=== PATIENT | male | born 1950 | race Caucasian/White ===

== ENCOUNTER → 2016-12-18 | Outpatient (CLI) | payer BC ==
[~2016-12-18] MED LIST: ACET-1256 PO; ASPCH81 PO; DIPH-437 PO; FRRG PO; LPT10 PO; PRT40 PO; WARF1TAB PO
[2016-12-18 10:52] LABS: BASO % 0.5 %; BASO ABS # 0.03 K/uL (0-0.2); COMPLETE YES; EOS % 5.9 %; HEMATOCRIT 43.7 % (42-52); IG% 0.3 %; LYMPH % 30.5 %; LYMPH ABS # 2.02 K/uL (1.2-3.4); MEAN CELL VOLUME 92.2 fL (80-100); MEAN CORPUSCULAR HEMOGLOBIN 31.2 pg (25-34); MEAN CORPUSCULAR HGB CONC 33.9 g/dl (32-36); MEAN PLATELET VOLUME 8.6 fL (7.4-10.4); MONO % 7.4 %; NEUT % 55.4 %; PLATELET COUNT 239 K/uL (130-400); RED BLOOD COUNT 4.74 M/uL (4.7-6.1); WHITE BLOOD COUNT 6.63 K/uL (4.8-10.8)
[2016-12-18 11:19] LABS: BLOOD UREA NITROGEN 15 mg/dl (7-18); BUN/CREATININE RATIO 12.7 (10-20); CALCIUM 8.7 mg/dl (8.5-10.1); CARBON DIOXIDE 30 mmol/L (21-32); CHLORIDE 105 mmol/L (98-107); GLUCOSE 115 mg/dl (70-99); SODIUM 139 mmol/L (136-145)
[2016-12-18 11:28] LABS: ALB/GLOB RATIO 0.9 (0.9-2); ALKALINE PHOSPHATASE 72 U/L (45-117); ALT/SGPT 31 U/L (12-78); AST/SGOT 13 U/L (15-37); CHOLESTEROL 212 mg/dl (0-200); CHOLESTEROL/HDL RATIO 5.4; HDL CHOLESTEROL 39 mg/dl; LDL CHOLESTEROL CALCULATED 148 mg/dl; PHOSPHORUS 2.1 mg/dl (2.5-4.9); PROSTATE SPECIFIC ANTIGEN 0.444 ng/ml (0.000-4.000); TRIGLYCERIDES 126 mg/dl (0-150); URIC ACID 5.2 mg/dl (2.6-7.2); VERY LOW DENSITY LIPOPROT CALC 25 mg/dl
[2016-12-18 11:32] LABS: ESTIMATED AVERAGE GLUCOSE 128 mg/dl; HA1C FLAG Normal (Normal)
[2016-12-22 11:40] LABS: C-REACTIVE PROT HIGHSEN 7.3 MG/L
--- NOTE | 2017-01-02 13:29 | CODING QUERY MEDICAL NECESSITY ---
SUPPORTING DIAGNOSIS NEEDED A supporting diagnosis is required for the test/procedure performed on this patient in order for us to be reimbursed by the patient's insurance. Please provide a supporting diagnosis for the following test/procedure listed below next to the test name along with your signature. *If there is no additional diagnosis for this patient that would support the following test/procedure please document that below next to the test/procedure. Test(s)/Procedure(s) that require a supporting diagnosis: * PSA DIAGNOSIS: * C-REACTIVE PROTEIN DIAGNOSIS: * DOS: 12/18/16 Provider Signature: Date: Thank you [facility] Once completed, please kindly fax back to [phone] For questions please call [phone]
== END | disposition home or self-care (01) ==
LOC: C.LABBC 08:52
PROVIDERS: ATTEND Family Medicine
DX: R73.09 Other abnormal glucose (principal); E55.9 Vitamin D deficiency, unspecified; D51.9 Vitamin B12 deficiency anemia, unspecified

== ENCOUNTER → 2017-12-31 | Outpatient (CLI) | payer BC ==
[~2017-12-31] MED LIST changes: +PERFLUTREN LIPID MICROSPHERE (DEFINITY) IV ONE
--- NOTE | 2017-12-31 19:50 | ECHOCARDIOGRAM REPORT ---
*NOTICE TO RECEIVING REPUBLICAN AGENCY This information is strictly Confidential and protected under [place] law. [place] law prohibits you from making any further disclosure of this information unless further disclosure is expressly permitted by the written consent of the person to whom it pertains or is authorized by law. A general authorization for the release of medical or other information is not sufficient for this purpose. Hospital accepts no responsibility if the information is made available to any other person, INCLUDING THE PATIENT. Interpretation Summary * Name: CHERYL VELASQUEZ JR Study Date: 12/31/2017 01:31 PM BP: 140/70 mmHg * Patient Location: [facility] HR: 82 * : 1950 (M/d/yyyy) Gender: Male Height: 72 in * Age: 67 yrs Ethnicity: [place] Weight: 240 lb * Ordering Physician: Raghavendra Conner * Referring Physician: Raghavendra Conner * Performed By: Roslyn Dooley RDCS * * Reason For Study: AORTIC STENOSIS * BSA: 2.3 m2 * -- Conclusions -- * 1. Normal left ventricular size and systolic function. EF 60-65%. No regional wall motion abnormalities. Mild concentric left ventricular hypertrophy. Type 1 diastolic dysfunction. * 2. Mild valvular aortic stenosis. * 3. Technically difficult study, enhanced with IV Definity. * 4. Similar findings compared to prior study on 01/02/2014. Procedure Details * A contrast injection of Definity was performed to improve assessment of LV function. * Contrast was injected into an intravenous site in the left arm. * One vial of Definity ultrasound contrast was diluted in normal saline to a total volume of 10 ml. A total of '2' ml of solution was administered during imaging. * Lot # [id number] of Definity utilized for procedure. * Expiration date JAN 14. * The attending nurse who injected the contrast agent was CURT VELÁZQUEZ RN. Left Ventricle * Normal left ventricular size and systolic function. EF 60-65%. No regional wall motion abnormalities. Mild concentric left ventricular hypertrophy. Type 1 diastolic dysfunction. Right Ventricle * The right ventricle is normal in size and function. * The right ventricular systolic function is normal as assessed by tricuspid annular plane systolic excursion (TAPSE) (normal >1.5 cm). Atria * The left atrial size is normal. * Right atrial size is normal. * There is no evidence of atrial septal defect, but resolution does not allow assessment for a patent foramen ovale. Mitral Valve * The mitral valve is grossly normal. * There is no mitral valve stenosis. * Significant mitral regurgitation is absent. Tricuspid Valve * The tricuspid valve is not well visualized. * There is no tricuspid stenosis. * Significant tricuspid regurgitation is absent. Aortic Valve * Possibly trileaflet aortic valve. * Mild valvular aortic stenosis. * There is no significant aortic regurgitation. Pulmonic Valve * The pulmonary valve is inadequately visualized, but the Doppler data is adequate for interpretation. * There is no pulmonic valvular stenosis. * There is no significant pulmonary regurgitation. Great Vessels * The aortic root is normal size. * Ascending aorta of normal dimension Pericardium/Pleural * There is no pericardial effusion. Great Vessels * IVC not visualized. MMode 2D Measurements and Calculations IVSd 1.3 cm LVIDd 4.4 cm LVIDs 2.9 cm LVPWd 1.3 cm IVS/LVPW 1.0 FS 35.6 % EDV(Teich) 89.5 ml ESV(Teich) 31.1 ml EF(Teich) 65.3 % EDV(cubed) 87.4 ml ESV(cubed) 23.3 ml EF(cubed) 73.3 % LV mass(C)d 212.4 grams LV mass(C)dI 92.3 grams/m\S\2 SV(Teich) 58.4 ml SI(Teich) 25.4 ml/m\S\2 SV(cubed) 64.0 ml SI(cubed) 27.8 ml/m\S\2 Ao root diam 3.0 cm Ao root area 7.2 cm\S\2 asc Aorta Diam 2.8 cm LVOT diam 2.0 cm LVOT area 3.2 cm\S\2 LVAd ap4 29.3 cm\S\2 LVLd ap4 8.1 cm EDV(MOD-sp4) 86.3 ml EDV(sp4-el) 89.9 ml LVAs ap4 15.6 cm\S\2 LVLs ap4 6.5 cm ESV(MOD-sp4) 31.3 ml ESV(sp4-el) 32.1 ml EF(MOD-sp4) 63.8 % EF(sp4-el) 64.3 % LVAd ap2 29.4 cm\S\2 LVLd ap2 8.3 cm EDV(MOD-sp2) 86.5 ml EDV(sp2-el) 88.3 ml LVAs ap2 15.1 cm\S\2 LVLs ap2 6.6 cm ESV(MOD-sp2) 28.5 ml ESV(sp2-el) 29.3 ml EF(MOD-sp2) 67.1 % EF(sp2-el) 66.8 % LVLd %diff 11.2 % EDV(MOD-bp) 101.0 ml LVLs %diff 6.0 % ESV(MOD-bp) 29.2 ml EF(MOD-bp) 71.1 % SV(MOD-sp4) 55.0 ml SI(MOD-sp4) 23.9 ml/m\S\2 SV(MOD-sp2) 58.1 ml SI(MOD-sp2) 25.2 ml/m\S\2 SV(MOD-bp) 71.8 ml SI(MOD-bp) 31.2 ml/m\S\2 SV(sp4-el) 57.8 ml SI(sp4-el) 25.1 ml/m\S\2 SV(sp2-el) 59.0 ml SI(sp2-el) 25.6 ml/m\S\2 Doppler Measurements and Calculations MV E max mary ellen 61.9 cm/sec MV A max mary ellen 66.8 cm/sec MV E/A 0.93 MV dec time 0.22 sec Ao V2 max 251.7 cm/sec Ao max PG 25.3 mmHg Ao max PG (full) 21.3 mmHg Ao V2 mean 173.9 cm/sec Ao mean PG 13.6 mmHg Ao mean PG (full) 11.5 mmHg Ao V2 VTI 47.7 cm ELLE(I,A) 1.3 cm\S\2 ELLE(I,D) 1.3 cm\S\2 ELLE(V,A) 1.3 cm\S\2 ELLE(V,D) 1.3 cm\S\2 LV V1 max PG 4.1 mmHg LV V1 mean PG 2.0 mmHg LV V1 max 101.1 cm/sec LV V1 mean 65.3 cm/sec LV V1 VTI 19.9 cm SV(Ao) 342.8 ml SI(Ao) 148.9 ml/m\S\2 SV(LVOT) 62.9 ml SI(LVOT) 27.3 ml/m\S\2
== END | disposition home or self-care (01) ==
LOC: C.CPL 13:23
PROVIDERS: ATTEND Family Medicine
DX: I35.0 Nonrheumatic aortic (valve) stenosis (principal)

== ENCOUNTER 2020-06-12 06:21 | Observation (INO) ==
--- NOTE | 2020-04-18 12:52 | Anesthesiology Consultation ---
Date of Service April 18, 2020 Assessment & Plan (1) Encounter for pre-operative examination: COVID Status: As of 04/18 assessment, patient denies travel to endemic area, known exposure/sick contacts, or symptoms of COVID19. Patient instructed that they and their household members must follow strict social distancing guidelines, wear a mask in public and avoid travel for 14 days prior to surgery. Preoperative COVID19 testing to be completed prior to surgery per surgeon's arrangements. Patient made aware to self-isolate as much as possible between COVID testing and surgery. Chart Review Chart Review: Acceptable Risk for Surgery (pending response from PCP re: elevated glucose) and Patient seen in Pre Admission Testing Teaching & Discussion Instructed NPO after midnight before surgery, except medications with 15 cc of water. Medication instructions provided according to the PAT guidelines. History Surgery Operation Date: 06/12/20 07:00 Proposed Procedures p Right Total Hip Arthroplasty - Abhinav Jimenez MD Height/Weight Height: 6 ft Weight: 111.584 kg Allergies Allergy/AdvReac Type Severity Reaction Status Date / Time atorvastatin [From Lipitor] Allergy Mild Rash Verified 04/18/20 12:34 oxycodone Allergy Mild nausea and Verified 04/18/20 12:33 did not work Medications Home Medications Medication Instructions Recorded Confirmed Last Taken vddrqey-lpofhxwrniigy-gujludno 2 tab PO HS 04/18/20 04/18/20 Unknown [Excedrin Extra Strength] Past Medical History Medical History (Updated 04/18/20 @ 16:32 by Fabio Abbott) Aortic stenosis Mild per 2018 echo. Arthritis of right hip Carotid artery stenosis Discovered in 2013 after SADIE when pt had TIA symptoms post-op. Monitored yearly by Dr. Brown. To have updated carotid doppler 04/2020. Obesity Exercise / Class Metabolic Activity III < 4 Walking/Shop/Light housework (+Mild SOB with 1 FOS, denies any chest pain) Past Surgical History Surgical History History of left hip replacement Hx of left inguinal hernia repair Past Anesthesia History No Family Hx of Anesthesia Complications Acute single episode of PONV with SADIE 2013. History of PONV No Hx of Motion Sickness and History of PONV Social History Smoking Status: Never smoker Do You Dip or Chew Tobacco: No Hx Alcohol Use: Yes alcohol intake frequency: holidays/special occasions only Alcohol Intake Frequency Comment: rare Hx Substance Use: No substance use type: does not use Review of Systems Pt denies any recent chest pain, shortness of breath, palpitations, cough, fever, URI, or uncontrolled acid reflux. Physical Exam Vital Signs BP: 155/81 (pt reports this is a bit high for him, usually 140s systolic) P: 90bpm SPO2: 96% RA T: 98.1 F R: 16 ENMT Mouth: + restricted motion of mouth, + dental bridge (front upper incisors), + dental restorations (molar) and + small oral opening; no chipped teeth and no loose teeth Thyromental Distance: < 3.5 Finger Breadths (3) Mallampati Class: III Neck + thick neck; neck extension not limited and no facial hair Respiratory normal respiratory effort Auscultation: lungs clear to auscultation bilaterally Cardiovascular Rate/Rhythm: regular rate and regular rhythm Heart Sounds: + murmur (II/ Systolic @ RSB, I/ mitral area) Vessels: no carotid bruit Extremities: no edema Testing Laboratory Results 04/18/20 13:15 04/18/20 13:15 PT 10.4 Seconds (9.0-12.0) 04/18/20 13:15 INR 1.0 (0.9-1.1) 04/18/20 13:15 APTT 32.0 Seconds (21.0-31.0) H 04/18/20 13:15 Blood Type O Positive 04/18/20 13:15 Antibody Screen NEGATIVE 04/18/20 13:15 *surgeon's office made aware of elevated glucose. Note sent to PCP. Electrocardiogram Date: 04/18/20 Findings: + NSR @ (85bpm) Moderate voltage criteria for LVH, may be normal variant. Chest X-Ray Date: 04/18/20 FINDINGS: Cardiac silhouette is enlarged, increased in size from comparison. No pneu mothorax, pleural effusion, airspace consolidation or overt pulmonary edema. Mild right hemidiaphragm elevation. Degenerative changes of the shoulders and spine. IMPRESSION: Cardiomegaly without acute process. Echocardiogram Date: 12/31/17 EF: 60-65% Normal LV size and systolic function. No regional wall motion abnormalities. Mild concentric LVH. Type I diastolic dysfunction. Mild aortic valvular stenosis (ELLE 1.3cm^2). Technically difficult study enhanced with IV Definity. Similar findings compared to prior study on 01/02/2014.
--- NOTE | 2020-04-18 13:35 | XRay Report ---
XR chest Pre-admission PA/Lat HISTORY: 69 years-old Male pat preoperative exam. No acute chest complaints COMPARISON: Chest radiographs 12/02/2013 TECHNIQUE: PA and lateral views of the chest FINDINGS: Cardiac silhouette is enlarged, increased in size from comparison. No pneumothorax, pleural effusion, airspace consolidation or overt pulmonary edema. Mild right hemidiaphragm elevation. Degenerative ch anges of the shoulders and spine. IMPRESSION: Cardiomegaly without acute process. ACT 112: Negative or not required by law. The above report was generated using voice recognition software. It may contain grammatical, syntax o r spelling errors. Electronically signed by: Efe Arias M.D. 04/18/2020 1:34 PM
[2020-04-18 13:39] LABS: Basophils # (auto) 0.02 K/uL (0-0.2); Basophils % (auto) 0.2 %; Eosinophils # (auto) 0.18 K/uL (0-0.5); Eosinophils % (auto) 2.2 %; Hemoglobin 15.6 g/dL (14.0-18.0); Immature Granulocytes # (auto) 0.04 K/uL (0.00-0.02); Immature Granulocytes % (auto) 0.5 %; Lymphocytes # (auto) 2.06 K/uL (1.2-3.4); Lymphocytes % (auto) 25.3 %; Mean Corpuscular Hemoglobin 31.1 pg (25-34); Mean Corpuscular Hgb Conc 34.7 g/dL (32-36); Mean Corpuscular Volume 89.6 fL (80-100); Mean Platelet Volume 8.3 fL (7.4-10.4); Monocytes # (auto) 0.74 K/uL (0.11-0.59); Monocytes % (auto) 9.1 %; Neutrophils # (auto) 5.09 K/uL (1.4-6.5); Neutrophils % (auto) 62.7 %; Platelet Count 223 K/uL (130-400); RDW Coefficient of Variation 12.6 % (11.5-14.5); RDW Standard Deviation 40.8 fL (36.4-46.3); Red Blood Count 5.02 M/uL (4.7-6.1); White Blood Count 8.13 K/uL (4.8-10.8)
[2020-04-18 13:56] LABS: Partial Thromboplastin Ratio 1.1; Prothrombin Time 10.4 Seconds (9.0-12.0)
--- NOTE | 2020-04-18 14:07 | Electrocardiogram Report ---
Test Reason : Blood Pressure : / mmHG Vent. Rate : 085 BPM Atrial Rate : 085 BPM P-R Int : 178 ms QRS Dur : 090 ms QT Int : 368 ms P-R-T Axes : 043 -20 042 degrees QTc Int : 437 ms Normal sinus rhythm Moderate voltage criteria for LVH, may be normal variant Borderline ECG When compared with ECG of 30-DEC-2013 10:43, Vent. rate has increased BY 41 BPM Confirmed by Lisandro Hicks ([id number]) on 04/18/2020 2:07:39 PM Referred By: Abhinav Jimenez Confirmed By:Lisandro Hicks
[2020-04-18 14:56] LABS: BUN Creatinine Ratio 11.6 (10-20); Calcium 8.7 mg/dl (8.5-10.1); Est GFR (African American) 67.7; Est GFR (Non-African American) 58.4; Potassium 4.1 mmol/L (3.5-5.1)
[2020-04-18 14:57] LABS: C Reactive Protein 1.11 mg/dl (0-0.29)
--- NOTE | 2020-06-09 10:13 | Progress Notes ---
DATE: 06/12/2020 CHIEF COMPLAINT: Right hip pain and discomfort. HISTORY OF PRESENT ILLNESS: The patient is a 70-year-old gentleman who is well known to me from previous left hip replacement done a little over 6 years ago. He has done quite well from that side, but has developed increased pain and discomfort in his right hip. He was having some pain in his hip even 6 years ago. It has gradually gotten worse over time. He describes groin pain, buttock pain, thigh pain, radiates down to his knee. He limps all the time, but more as the day goes on. The more he walks, the more it hurts and limps. He has become more debilitating. He cannot put his shoes and socks on. He would like to have his right hip fixed. PAST MEDICAL HISTORY: 1. Unspecified heart murmur. 2. Obesity with a BMI of 34. PAST SURGICAL HISTORY: Include: 1. Left hip replacement done 01/09/2014. 2. Herniorrhaphy. ALLERGIES: None. CURRENT MEDICATIONS: 1. Tylenol. 2. Baby aspirin. 3. Atorvastatin. 4. Iron. 5. Pantoprazole. SOCIAL HISTORY: A 70-year-old male. He is from [place]. He is . Does not smoke or drink. FAMILY HISTORY: Noncontributory. REVIEW OF HISTORY: Negative for diabetes, neurologic problem, vascular problems or bleeding disorders. No chest pain or shortness of breath. No history of DVT or PE. PHYSICAL EXAMINATION: GENERAL: Shows a pleasant, middle-aged male. He looks to be in good health. HEENT: Benign. NECK: Supple, no lymphadenopathy. LUNGS: Clear to auscultation. HEART: Has a regular rate and rhythm. ABDOMEN: Soft, nontender, nondistended. EXTREMITIES: Grossly neurovascularly intact except as follows. Examination of the right leg reveals the patient walks with a significant antalgic gait. Leg lengths clinically appear pretty equal. He has a very stiff hip with motion. Internal rotation to -5. External rotation to 20 degrees. Negative straight leg raise. No knee effusion. X-RAYS: X-rays of the right hip were reviewed. Shows advanced right hip DJD. He has got complete loss of his joint space with a large medial osteophyte. Left hip replacement looks to be in good position without signs of problems. ASSESSMENT: A 70-year-old male 6+ years out from a left hip replacement with advanced right hip degenerative joint disease. He has failed conservative care. He would like to have his right hip replaced. PLAN: We will take him to the operating room and do right total hip replacement. The risks and benefits of this procedure were explained to the patient including but not limited to DVT, PE, , infection, neurological injury, vascular injury, bleeding problem, pain, limited range of motion, stiffness, failure to relieve symptoms, incomplete relief of symptoms, need for further surgery in future, fracture, leg length inequality, nerve palsy, etc. The patient understands and desires to proceed. Informed consent was obtained. As far as discharge plans, he is planning to be discharged to home using home with home health. He states that he does not really respond to oxycodone would like either some different type of pain medicine. We will use note, on his preoperative visit, his blood sugars were elevated and he has gotten with his medical doctor and they have gotten this under control, but now being treated for diabetes.
[2020-06-10 08:51] LABS: SARS CoV2 RNA (COVID-19) NOT DETECTED (NOT DETECTED)
[~2020-06-12 06:21] MED LIST changes: -ACET-1256 PO; +ACETAMINOPHEN 500 MG TAB PO SCH; -ASPCH81 PO; +CEFAZOLIN 2000MG 2,000 MG/15 ML SYR IV SCH; -DIPH-437 PO; +FAMOTIDINE 20 MG TAB PO SCH; -FRRG PO; +GABAPENTIN 300 MG CAP PO SCH; +GENERAL ORDER PROBLEM SCH; -LPT10 PO; +LR 500ML BOLUS, THEN 15ML/HR IV SCH; +LR 60ML/HR IV SCH; +METOCLOPRAMIDE HCL 10 MG TABLET PO SCH; -PERFLUTREN LIPID MICROSPHERE (DEFINITY) IV ONE; -PRT40 PO; +TRANEXAMIC ACID 1,000 MG **IV Pre-op IV SCH; -WARF1TAB PO; +dexAMETHasone 4 MG TAB PO SCH
[2020-06-12] MEDS ORDERED: fentaNYL citrate 100 MCG/2 ML VIAL ONE (06:33)
[2020-06-12] MEDS ORDERED: MIDAZOLAM HCL 1 MG/ML 2ML VIAL ONE (06:33)
--- NOTE | 2020-06-12 06:47 | History & Physical Bridge Note ---
Date of Service June 12, 2020 History & Physical Bridge Note I have examined the patient, reviewed the History & Physical and in the interval since the performance of the History & Physical I have noted the following changes of clinical significance: no changes noted
[2020-06-12] MEDS ORDERED: BUPIVACAINE 0.5 % 5 MG/1 ML PF 10ML VIAL ONE (07:15)
[2020-06-12] MEDS ORDERED: MoRPHine SULFATE PF 1 MG/ML 10 ML AMP/VIAL ONE (07:24)
[2020-06-12] MEDS ORDERED: ATROPINE SULFATE 0.1 MG/ML 10ML SYR IV PRN (08:15)
[2020-06-12] MEDS ORDERED: fentaNYL citrate 100 MCG/2 ML VIAL IV PRN (08:15)
[2020-06-12] MEDS ORDERED: ePHEDrine sulfate 50 MG/ML AMP IV PRN ×2 (08:15→08:17)
[2020-06-12] MEDS ORDERED: ONDANSETRON INJ 2 MG/ML 2 ML VIAL IV PRN ×2 (08:15→08:17)
[2020-06-12] MEDS ORDERED: HYDROmorphone INJ 0.5 MG/0.5 ML SYR IV PRN (08:17)
[2020-06-12] MEDS ORDERED: MoRPHine SULFATE PF 1 MG/ML 10 ML AMP/VIAL INT SPINAL ONE (08:17)
[2020-06-12] MEDS ORDERED: MEPERIDINE HCL 25 MG/ML CARP/VIAL IV PRN (08:17)
[2020-06-12] MEDS ORDERED: NALOXONE HCL 0.4 MG/1 ML VIAL/CARP IV PRN ×2 (08:17→11:06)
[2020-06-12] MEDS ORDERED: NALOXONE HCL 0.08 MG in SYRINGE 1.8 ML IV PRN (08:17)
[2020-06-12] MEDS ORDERED: DiphenhydrAMINE HCL 50 MG/ML VIAL IV PRN (08:17)
[2020-06-12] MEDS ORDERED: PROMETHAZINE HCL 6.25 MG in SODIUM CHLORIDE 0.9% 50 ML IV PRN (08:17)
[2020-06-12] MEDS ORDERED: LACTATED RINGER'S 500 ML IV PRN (08:17)
[2020-06-12] MEDS ORDERED: MoRPHine SULFATE 2 MG/ML CARP IV PRN (08:17)
[2020-06-12] MEDS ORDERED: NALOXONE HCL 1 MG in SODIUM CHLORIDE 0.9% 1000ML 1,000 ML IV PRN (08:17)
[2020-06-12] MEDS ORDERED: EPINEPHrine INJ 1 MG/ML AMP ONE (08:23)
[2020-06-12] MEDS ORDERED: BUPIVACAINE 0.5 % 5 MG/1 ML MPF 30ML VIAL ONE (08:23)
[2020-06-12] MEDS ORDERED: BACITRACIN INJ 50,000 UNIT VIAL ONE (08:23)
[2020-06-12] MEDS ORDERED: LIDOCAINE HCL 2% 2 ML VIAL/AMP(20MG/ML) INFIL ONE (08:26)
[2020-06-12] MEDS ORDERED: PROPOFOL IV EMULSION 10 MG/ML 20 ML VIAL IV ONE (08:27)
[2020-06-12] MEDS ORDERED: ONDANSETRON INJ 2 MG/ML 2 ML VIAL ONE (08:27)
[2020-06-12] MEDS ORDERED: DC INTRASPINAL MORPHINE SCH (08:30)
[2020-06-12] MEDS ORDERED: SODIUM CHLORIDE 0.9% 1000ML 1,000 ML IV SCH (08:30)
[2020-06-12] MEDS ORDERED: NO NARCOTICS OR SEDATIVES SCH (08:30)
[2020-06-12] MEDS ORDERED: KETOROLAC TROMETHAMINE 15 MG/ML VIAL IV PRN (08:53)
--- NOTE | 2020-06-12 10:05 | Post Operative Brief Note ---
PG Immediate Post Op with CF Date of Surgery June 12, 2020 Pre & Post Diagnosis Operation Date: 06/12/20 09:00 Pre-Op Diagnosis: Right Hip Advanced Degenerative Joint Disease Post-Op Diagnosis: Right Hip Advanced Degenerative Joint Disease I identified the patient and participated in the time-out.: Yes Procedure Operation Date: 06/12/20 09:00 Actual Procedures p Right Total Hip Arthroplasty--Uncemented(Right) - Abhinav Jimenez MD Surgeon Abhinav Jimenez MD Senior Applications Engineer Marisabel, [facility] Estimated Blood Loss 200 Findings Consistent with Post-Op Diagnosis Fluids 1000 cc Specimens Specimen Description: Permanent Solution: A. Right Femoral Head Drains Levin Catheter Anesthesia Type Spinal MAC Complications none Disposition Accompanied Patient To Recovery: Yes Disposition: Recovery Room
--- NOTE | 2020-06-12 10:19 | Operative Report ---
Post Operative Report Pre & Post Diagnosis Operation Date: 06/12/20 09:00 Pre-Op Diagnosis: Right Hip Advanced Degenerative Joint Disease Post-Op Diagnosis: Right Hip Advanced Degenerative Joint Disease I identified the patient and participated in the time-out.: Yes Procedure Operation Date: 06/12/20 09:00 Actual Procedures p Right Total Hip Arthroplasty--Uncemented(Right) - Abhinav Jimenez MD Surgeon Abhinav Jimenez MD Pit Hand Marisabel, PAC Estimated Blood Loss 200 Findings Consistent with Post-Op Diagnosis Operative findings revealed advanced right hip DJD. Had grade 4 [id number] disease of the femoral head and acetabulum. He had fairly large anterior acetabular osteophytes. Moderate-sized joint effusion. Fluids 1000 cc. Specimens Right femoral head sent for pathology. Drains None. Anesthesia Type Spinal MAC Complications none Disposition Accompanied Patient To Recovery: Yes Disposition: Recovery Room Indications Patient is a 70-year-old gentleman who has a history of a left hip replacement in the past. This is been about 6 years ago. Over the past 5 years she developed increased pain discomfort and stiffness of his right hip. Pain is become more debilitating. He failed conservative care. X-rays show advanced right hip DJD. He elected proceed with surgical treatment. Description of Procedure Operative implants consist of: 1. Biomet G7 size 54 mm acetabular shell. 2. 6.5 cancellus acetabular screws 1 of 35 mm length and 125 mm length. 3. An apex hole eliminator. 4. Highly cross-linked polyethylene liner with a 54 mm outer diameter, 36 mm inner diameter. 5. Diego Corail size 10 KLA femoral stem. 6. +5/36 mm ceramic articular ball. The patient was taken to the operating room identified and placed on the operating table supine position protectors were properly padded. IV antibiotics arrived by anesthesia team. A spinal anesthetic had been implemented holding area. Levin catheter was placed in sterile fashion with the patient then placed in the left lateral decubitus position. An axillary roll was placed. A Stulberg hip positioner was used for positioning. The right hip and leg were then prepped and draped in usual sterile fashion. A posterior lateral approach to the right hip was then performed to a curvilinear incision centered over the greater trochanter. Sharp dissection got through subcutaneous tissue down to level the IT band gluteal fascia the IT band gluteal fascia were then incised longitudinally in line with skin incision. The underlying greater truck bursa was excised. The piriformis and external rotators were tagged and taken off the posterior aspect hip joint capsule. Great care was taken throughout the procedure protect sciatic nerve at all times. Posterior capsulotomy was then performed leaving a large flap for later repair. Hip was internally rotated and dislocated. Femoral neck osteotomy cut was made with Final Cut 10 mm above the lesser trochanter. Femoral head was removed and sent for pathology. The femur was retracted anteriorly. Attention then drawn the acetabulum. The acetabulum labrum was excised per the pulmonary fat was excised. Sequential reaming the acetabular was then performed begin with size 45 and progressing up to 53. I did reamed slightly with a 54 reamer. A 54 mm Biomet G7 acetabular shell was then placed in about 40 degrees lateral opening and 20 degrees of anteversion. It was fixed with two 6.5 cancellus acetabular screws. Trial liner was placed. Some osteophytes were taken off anteriorly. Attention drawn the femur. The proximal femur was entered with a cookie-cutter followed by canal finder. I then broached begin the size 8 and progressing up to a 10. We got good fit with a 10. I was concerned about the distal phases canal was pretty narrow. We stop there. The calcar reamer was used smooth and off the calcar. Then trialed the hip and the +5 articular ball re-created soft tissue tension appropriately, was fully stable, and appeared to restore leg lengths to equal. We elect to place these implants. All trial implants were removed. An apex hole cfo controller was placed. Highly cross-linked polyethylene liner was placed. [place] KLA size 10 femoral stem was impacted in position. +5/36 mm ceramic articular ball was placed. The hip was located once again found to be stable. Attention drawn toward closing. Wound was irrigated copious pulsatile lavage solution. I did inject locally with 60 cc of half percent Marcaine with epinephrine. Posterior capsule external rotators were then repaired through drill holes in the posterior trochanter with #2 Tycron suture. The IT band gluteal fascia then closed in 1 PDS suture running fashion with subcutaneous tissue then closed 2 layers with the deep layer #1 Vicryl suture and subcutaneous tissues with 2-0 Dexon suture in a buried interrupted fashion. Skin was closed skin lulu. Leg was then cleaned dried a sterile dressing composed Xeroform, 4 x 4's, ABD pad, foam tape was applied. Patient then transferred to the recovery room in stable condition. Patient tolerated the procedure well and there were no complications. Mega Petit, my physician recreation assistant, was present for the entire procedure. His presence was essential to proper patient positioning, prepping and draping, surgical exposure, performing the technical details of the operation, placing the implants, closure of the wound, and placement of the sterile bandage. I attest to the content of the Intraoperative Record and any orders documented therein. Any exceptions are noted below.
--- NOTE | 2020-06-12 10:48 | XRay Report ---
XR hip 1V RT w pelvis CLINICAL HISTORY: Degenerative arthritis. Postoperative study COMPARISON: 02/14/2014 DISCUSSION: Again evident is a total left hip arthroplasty. There is now evidence for a total right h ip arthroplasty. The acetabular femoral components appear well seated. There are overlying skin stapl es. There is no dislocation. There is no evidence for soft tissue swelling. IMPRESSION: Postsurgical changes of a total right hip arthroplasty. ACT 112: Negative or not required by law. Electronically signed by: Raffy Roman M.D. 06/12/2020 10:47 AM
[2020-06-12] MEDS ORDERED: GLUCAGON FOR INJ 1 MG VIAL SQ PRN (11:06)
[2020-06-12] MEDS ORDERED: ALUMINUM/MAGNESIUM SUSP 30 ML UDC PO PRN (11:06)
[2020-06-12] MEDS ORDERED: PHARMACY GLYCEMIC MGMT CONSULT PRN (11:06)
[2020-06-12] MEDS ORDERED: bisacodyL 10 MG SUPP PR PRN (11:06)
[2020-06-12] MEDS ORDERED: METOCLOPRAMIDE HCL INJ 5 MG/ML 2 ML VIAL IV PRN (11:06)
[2020-06-12] MEDS ORDERED: GLUCOSE 40% GEL 15 GM TUBE PO PRN (11:06)
[2020-06-12] MEDS ORDERED: DEXTROSE 50% 50 ML SYRINGE IV PRN (11:06)
[2020-06-12] MEDS ORDERED: CARBOHYDRATES FOR HYPOGLYCEMIA PO PRN (11:06)
[2020-06-12] MEDS ORDERED: TAMSULOSIN HCL 0.4 MG CAP PO PRN (11:06)
[2020-06-12] MEDS ORDERED: GLUCOSE 10 TABS/TUBE PO PRN (11:06)
[2020-06-12] MEDS ORDERED: MAGNESIUM HYDROXIDE SUSP 30 ML UDC PO PRN (11:06)
--- NOTE | 2020-06-12 11:23 | Pharmacy Report ---
Glycemic Control Consultation - Date of Service June 12, 2020 - Scope Scope: Glycemic Pharmacist consulted for glycemic control and to write orders per [facility] inpatient glycemic control protocol. - Objective Weight: 104.4 kg Accuchecks BSG (last 24hrs): 06/12/20 06/12/20 06:54 10:16 POC Glucose 127 H 173 H - Recent Pertinent Medications Outpatient Anti-diabetic Regimen: * metformin 500 bid * A1c = pending for tomorrow Risk Factors for Insulin Resistance: * Steroids: none * Recent Surgery: POD 0 * Diet: yes - Assessment & Plan Assessment & Plan: ASSESSMENT: * 70 year old male now s/p right total hip arthroplasty, POD 0. Patient type 2 diabetic managed only on metformin at home. Pharmacy consulted for glycemic management. No steroids received preop/intraop. * Plan to utilize correctional insulin postop / hold basal insulin. Will reevaluate in AM. A1c ordered for tomorrow PLAN FOR INPATIENT GLYCEMIC CONTROL: * Holding outpatient oral diabetes medications * Basal insulin * Lantus - hold * Bolus insulin * NovoLog per scale ACHS or Q6hrs while NPO * Goal Range: Low 110 mg/dL - High 140 mg/dL * Correction Factor: 25 mg/dL/unit * Nutritional / Prandial insulin per carb ratio of 1 unit per -- grams CHO consumed * Please note that the plan above was derived based on current level of insulin resistance and hospital stress. These recommendations are appropriate for inpatient admission only. Plan of care upon discharge will need to be reassessed to avoid potential outpatient hypo/hyperglycemia. Thank you.
--- NOTE | 2020-06-12 11:50 | Anesthesiology Progress Note ---
Date of Service June 12, 2020 Anesthesia Post Procedure Vital Signs Vital Signs: Temp Pulse Pulse Resp BP BP Pulse Ox 06/12/20 11:36 35.7 C L 63 14 131/76 97 06/12/20 11:00 36.4 C L 53 L 16 126/73 99 06/12/20 10:40 36.4 C L 68 18 108/60 94 06/12/20 10:35 71 18 122/93 94 06/12/20 10:25 36.4 C L 866 H 18 142/93 H 92 06/12/20 10:15 86 18 145/63 H 96 06/12/20 10:09 36.1 C L 86 18 143/65 H 95 06/12/20 07:42 69 18 159/81 H 97 06/12/20 07:02 37.1 C 70 20 137/77 95 Pain Intensity Right Hip: Pain Intensity: 3 Transfer of Care Handoff Completed per policy Notes Mental Status: alert / awake / arousable Patient Amnestic to Procedure: Yes Nausea / Vomiting: adequately controlled Pain: adequately controlled Airway Patency, RR, SpO2: stable & adequate BP & HR: stable & adequate Hydration State: stable & adequate Neuraxial Anesthesia: was administered and sensory block is resolving Anesthetic Complications: no major complications apparent
[2020-06-12] MEDS: INSULIN ASPART 100 UNITS/ML 3 ML PEN SC SCH ×3 (13:46→21:04)
[2020-06-12] MEDS: ACETAMINOPHEN 500 MG TAB PO SCH ×2 (14:25→21:01)
--- NOTE | 2020-06-12 15:31 | Progress Notes ---
DATE: 06/12/2020 SUBJECTIVE: 70-year-old gentleman postoperative from right hip replacement. He is doing pretty well. He does not really having any pain yet. No chest pain or shortness of breath. Not feeling dizzy or lightheaded. His right eye has been a bit sore as he has been rubbing it. OBJECTIVE: VITAL SIGNS: Temperature is 36.4. Vital signs stable. GENERAL: Shows a pleasant, middle-aged male. He is sitting up in bed, looks pretty comfortable. Examination of the right eye does reveal some mild swelling with a little bit of redness to the eye. Mild swelling. LUNGS: Clear to auscultation. HEART: Regular rate and rhythm. ABDOMEN: Soft, nontender, nondistended. EXTREMITIES: Grossly neurovascularly intact except as follows: Examination of the right leg reveals the dressing to be clean, dry and intact. Hip is located. Leg lengths are equal. He can dorsiflex and plantarflex his foot appropriately. He is neurologically intact. X-RAYS: X-rays of the right hip from recovery room reviewed. It shows a right uncemented total hip arthroplasty. Components looked to be in good position. No signs of problems. ASSESSMENT: 70-year-old gentleman postop from right hip replacement, doing pretty well. Hip is located. He is neurologically intact. He was pretty out of it in the recovery room and was rubbing his eyes and I think that is what has caused the eye irritation. PLAN: 1. DVT prophylaxis including thigh-high TEDs, SCDs, and aspirin twice a day. 2. PT/OT. Weight bear as tolerated. Right total hip protocol. 3. Pain control, doing okay with current pain regimen. 4. IV antibiotics x24 hours. 5. Right eye irritation. We will follow this overnight and see how he does. If it is really bothering him we will get an ophthalmology consult. 6. Disposition: Plan to discharge to home with some home health once medically stable and adequately recovered.
[2020-06-12] MEDS ORDERED: TRANEXAMIC ACID / 0.7% NACL 1,000 MG/100 ML BAG IV SCH (16:00)
[2020-06-12] MEDS: SODIUM CHLORIDE 0.9% 1000ML 1,000 ML IV SCH (17:33)
[2020-06-12] MEDS: ASCORBIC ACID 500 MG TAB PO SCH (17:34)
[2020-06-12] MEDS: Scopolamine CHECK PATCH PLACEMENT SCH (17:35)
[2020-06-12] MEDS: CEFAZOLIN 2000MG 2,000 MG/15 ML SYR IV SCH (17:35)
[2020-06-12] MEDS: ASPIRIN 81 MG ECTAB PO SCH (21:01)
[2020-06-12] MEDS: DOCUSATE SODIUM 100 MG CAP PO SCH (21:01)
[2020-06-12] MEDS: SENNA 8.6 MG TAB PO SCH (21:01)
[2020-06-13] MEDS: CEFAZOLIN 2000MG 2,000 MG/15 ML SYR IV SCH (00:14)
[2020-06-13] MEDS: Scopolamine CHECK PATCH PLACEMENT SCH ×4 (00:15→23:18)
[2020-06-13] MEDS: SODIUM CHLORIDE 0.9% 1000ML 1,000 ML IV SCH ×2 (00:15→03:41)
[2020-06-13] MEDS ORDERED: ONDANSETRON INJ 2 MG/ML 2 ML VIAL IV PRN (01:45)
[2020-06-13] MEDS ORDERED: TRAMADOL HCL 50 MG TABLET PO PRN ×2 (01:45→08:29)
[2020-06-13] MEDS ORDERED: HYDROmorphone INJ 0.5 MG/0.5 ML SYR IV PRN ×2 (01:45→08:29)
[2020-06-13] MEDS: KETOROLAC TROMETHAMINE 15 MG/ML VIAL IV SCH ×4 (03:00→22:00)
[2020-06-13] MEDS: ACETAMINOPHEN 500 MG TAB PO SCH ×3 (05:24→21:56)
[2020-06-13 06:14] LABS: Basophils # (auto) 0.02 K/uL (0-0.2); Basophils % (auto) 0.2 %; Eosinophils # (auto) 0.06 K/uL (0-0.5); Eosinophils % (auto) 0.5 %; Hematocrit (blood only) 36.6 % (42-52); Hemoglobin 12.4 g/dL (14.0-18.0); Immature Granulocytes # (auto) 0.03 K/uL (0.00-0.02); Immature Granulocytes % (auto) 0.3 %; Lymphocytes # (auto) 2.22 K/uL (1.2-3.4); Lymphocytes % (auto) 19.5 %; Mean Corpuscular Hgb Conc 33.9 g/dL (32-36); Mean Corpuscular Volume 91.5 fL (80-100); Mean Platelet Volume 8.3 fL (7.4-10.4); Monocytes # (auto) 0.95 K/uL (0.11-0.59); Monocytes % (auto) 8.4 %; Neutrophils # (auto) 8.08 K/uL (1.4-6.5); Neutrophils % (auto) 71.1 %; Platelet Count 213 K/uL (130-400); RDW Coefficient of Variation 12.5 % (11.5-14.5); RDW Standard Deviation 42.2 fL (36.4-46.3); White Blood Count 11.36 K/uL (4.8-10.8)
[2020-06-13 06:43] LABS: Calcium 7.7 mg/dl (8.5-10.1); Est GFR (African American) 73.5; Est GFR (Non-African American) 63.5; Potassium 3.8 mmol/L (3.5-5.1)
[2020-06-13 07:14] LABS: Estimated Average Glucose 166 mg/dl; Hemoglobin A1C 7.4 % (4.5-5.6)
[2020-06-13] MEDS: METFORMIN HCL 500 MG TAB PO SCH ×2 (08:30→18:15)
[2020-06-13] MEDS: LOSARTAN POTASSIUM 25 MG TAB PO SCH (08:31)
[2020-06-13] MEDS: DOCUSATE SODIUM 100 MG CAP PO SCH ×2 (08:31→21:56)
[2020-06-13] MEDS: ASCORBIC ACID 500 MG TAB PO SCH ×2 (08:31→18:15)
[2020-06-13] MEDS: ASPIRIN 81 MG ECTAB PO SCH ×2 (08:31→21:56)
[2020-06-13] MEDS: MULTIVITAMIN TAB PO SCH (08:32)
[2020-06-13] MEDS: INSULIN ASPART 100 UNITS/ML 3 ML PEN SC SCH ×4 (08:35→22:38)
--- NOTE | 2020-06-13 09:56 | Progress Notes ---
DATE: 06/13/2020 SUBJECTIVE: A 70-year-old gentleman postop day 1 from a right hip replacement. He is doing quite a bit better this morning. His eye is feeling better. Still not back to normal, but better. He is really not having much in the way of hip pain. No chest pain or shortness of breath. Not feeling dizzy or lightheaded. OBJECTIVE: VITAL SIGNS: Temperature 36.6. Vital signs stable. GENERAL: Shows a pleasant elderly male. He is sitting up in bed, looks pretty comfortable. EXTREMITIES: Examination of the right hip reveals the leg lengths to be equal. Dressing is clean, dry, and intact. Thigh is soft and supple. He is neurologically intact. LABORATORY DATA: Hemoglobin 12.4. Hematocrit 36.6. White cell count normal at 11.36. Electrolytes are stable. ASSESSMENT: A 70-year-old gentleman postop day 1 from right hip replacement, doing pretty well. Pain is controlled. Hip is located. He is neurologically intact. He did have this eye irritation which looks to be significantly better this morning. PLAN: 1. DVT prophylaxis including thigh-high TEDs, SCDs, and aspirin twice a day. 2. PT/OT. Weight bear as tolerated. Right total hip protocol. 3. Pain control, doing okay with current pain regimen. 4. Disposition. He is hoping to be discharged to home. We are going to see how he does in therapy today and hopefully discharge tomorrow.
--- NOTE | 2020-06-13 10:30 | Pharmacy Report ---
Pharmacy Glycemic Short Note 2 - Date of Service June 13, 2020 - Glycemic Short BSG Results (Last 24 hours): 06/12/20 06/12/20 06/12/20 11:58 17:22 21:02 Glucose POC Glucose 199 H 117 H 215 H 06/13/20 06/13/20 05:32 08:15 Glucose 128 H POC Glucose 170 H ASSESSMENT: 06/13 * Patient received total of 6 units of insulin yesterday, all of which correctional * Fasting BSG slightly elevated this AM at 170 mg/dL - appears BSGs trending up after patient ate dinner last night. Will add loose CR for this AM * Patient tolerating diet per RN notes, plan to resume home metformin this morning PLAN FOR INPATIENT GLYCEMIC CONTROL: * Resume home metformin today * Basal insulin - hold * Bolus insulin * NovoLog per scale ACHS or Q6hrs while NPO * Goal Range: Low 110 mg/dL - High 140 mg/dL * Correction Factor: 30 mg/dL/unit * Nutritional / Prandial insulin per carb ratio of 1 unit per 12 grams CHO consumed * Please note that the plan above was derived based on current level of insulin resistance and hospital stress. These recommendations are appropriate for inpatient admission only. Plan of care upon discharge will need to be reassessed to avoid potential outpatient hypo/hyperglycemia. Thank you. PLAN FOR DISCHARGE: * A1C 7.4% on admission - goal <7% reasonable * Patient very close to A1C goal, would recommend continued home metformin on discharge. * Would encourage healthy lifestyle (exercise, diet) and continued self monitoring of blood sugars
[2020-06-13] MEDS: SENNA 8.6 MG TAB PO SCH (21:56)
[2020-06-14] MEDS: KETOROLAC TROMETHAMINE 15 MG/ML VIAL IV SCH ×2 (02:12→08:46)
[2020-06-14] MEDS: ACETAMINOPHEN 500 MG TAB PO SCH (06:04)
[2020-06-14] MEDS: Scopolamine CHECK PATCH PLACEMENT SCH (08:38)
[2020-06-14] MEDS: ASPIRIN 81 MG ECTAB PO SCH (08:39)
[2020-06-14] MEDS: METFORMIN HCL 500 MG TAB PO SCH (08:39)
[2020-06-14] MEDS: LOSARTAN POTASSIUM 25 MG TAB PO SCH (08:39)
[2020-06-14] MEDS: ASCORBIC ACID 500 MG TAB PO SCH (08:40)
[2020-06-14] MEDS: MULTIVITAMIN TAB PO SCH (08:40)
[2020-06-14] MEDS: DOCUSATE SODIUM 100 MG CAP PO SCH (08:40)
[2020-06-14] MEDS: INSULIN ASPART 100 UNITS/ML 3 ML PEN SC SCH (08:42)
--- NOTE | 2020-06-14 08:43 | Progress Notes ---
DATE: 06/14/2020 SUBJECTIVE: A 70-year-old gentleman postop day 2 from a right hip replacement. He is doing well. Pain is controlled. Therapy has gone pretty well. His eye continues to seem to get better. Still feels a little bit irritated, but pretty minor. OBJECTIVE: VITAL SIGNS: Temperature 36.8. Vital signs stable. GENERAL: Shows a pleasant, middle-aged male. He is lying in bed, looks pretty comfortable. EXTREMITIES: Examination of the right hip and leg reveals the leg to be well aligned. Dressing is clean, dry and intact. Thigh is soft and supple. He is neurologically intact. Examination of the right eye reveals the swelling to be improved. He does not really looks very irritated this morning. Maybe just a slight bit of residual swelling and irritation. Probably 75% improved. ASSESSMENT: A 70-year-old gentleman postop day 2 from right hip replacement, doing reasonably well. His pain is controlled. He is neurologically intact. I do not think he scratched his eye in the recovery room and it seems to be improving. 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 PLAN: 1. DVT prophylaxis including thigh-high TEDs, SCDs, and aspirin twice a day. 2. PT/OT. Weight bear as tolerated. Right total hip protocol. 3. Pain control and doing well with current pain regimen. 4. Disposition: Plan to discharge to home with some home health later today.
[2020-06-14] MEDS ORDERED: CeleBREX 200 MG CAP PO SCH (09:00)
--- NOTE | 2020-06-19 13:34 | Discharge Summary ---
Date of Service June 19, 2020 Admission HPI Per Admitting Provider Documented in the H & P Admission Exam (Per Admitting) Constitutional Documented in the H & P Discharge Data Consultations 06/12/20 16:05 Consult Ophthalmology Routine 06/13/20 08:00 Consult Case Management - Discharge Planning Routine Procedures Performed Operation Date: 06/12/20 09:00 Actual Procedures p Right Total Hip Arthroplasty--Uncemented(Right) - Abhinav Jimenez MD Hospital Course (1) Status post total hip replacement, right: This patient is a 70 year old male admitted on 06/12/20 and underwent total hip arthroplasty. He tolerated the procedure well and there were no complications. Transferred to the PACU post op and later to the orthopedic floor for further care. He was given ancef for antibiotic prophylaxis. He was also given ANALY stockings, SCDs, and aspirin for DVT prophylaxis. Hemoglobin, hematocrit, and vital signs were monitored during his hospital stay and remained stable. Did not require any blood transfusions. There were no complications during his hospital stay. By post op day #2 the patient was tolerating a diabetic diet, pain was reasonably controlled with oral pain medicine, and he was participating in physical therapy. On post op day #2 the patient was discharged home and set up with home health care. He was given printed discharge instructions including prescriptions for extra strength tylenol, aspirin, and tramadol. Continue physical therapy, weight bearing as tolerated. Continue ANALY stockings. Total hip precautions. Follow up approximately 2 weeks post op or sooner if there are problems or concerns. Coding Level of Care Code None Diagnoses Status post total hip replacement, right Z96.641
== END 2020-06-14 12:00 | disposition home health service (06) ==
LOC: ASU 06:21 → 3E 06:21

== ENCOUNTER 2021-03-12 06:02 | Inpatient (IN) ==
--- NOTE | 2021-03-07 14:48 | PAT Medication Instructions ---
Medication Instructions Date of Service March 07, 2021 Home Medications metformin 500 mg tablet 500 mg PO BID losartan 25 mg PO QAM amoxicillin 2,000 mg PO UD PRN aspirin [Aspirin Low Dose] 81 mg PO QAM rosuvastatin 20 mg PO QAM Continue as directed amoxicillin 2,000 mg PO UD PRN (prior to dental procedures) ASK your prescriber and surgeon aspirin [Aspirin Low Dose] 81 mg PO QAM DO NOT take the morning of surgery metformin 500 mg tablet 500 mg PO BID losartan 25 mg PO QAM Take morning of surgery With a small sip of water, OTHERWISE NOTHING TO EAT OR DRINK AFTER MIDNIGHT: rosuvastatin 20 mg PO QAM Take evening before surgery metformin 500 mg tablet 500 mg PO BID Other Notes If you have any questions please call us at [phone] or [phone] or or [phone]
--- NOTE | 2021-03-08 09:46 | Anesthesiology Consultation ---
Date of Service March 08, 2021 Assessment & Plan (1) Encounter for pre-operative examination: - COVID screening: Per assessment on 03/08: Travel screen- return from travel to [place] 03/05 (drove) to see granddaughter's graduation. Wore masks in [facility]. Patient vaccinated. No known COVID-19 positive contacts or current COVID- 19 related symptoms. Surgeon arranged preop COVID testing (done 03/12; at Dr. Brown's). Due to proximity of return from travel to preop COVID testing, will order cepheid for AM DOS (order placed). - Cardiology office visit (02/13/21): " His RCRI is 3.9% putting him at a low risk for 30-day cardiac complication perioperatively but he is probably slightly higher than that with his aortic stenosis.. We also discussed that the benefit of his carotid endarterectomy likely outweighs the risk of surgery. He does not require further cardiac testing before surgery." - ASA instructions: to continue perioperatively per surgeon - Check BSG AM DOS Chart Review Chart Review: Acceptable Risk for Surgery and Patient seen in Pre Admission Testing Teaching & Discussion Pre-Anesthesia Teaching/Discussion Notes: Instructed NPO after midnight before surgery,except medications with 15 cc of water. Medication instructions provid ed according to the PAT guidelines. History Surgery Operation Date: 03/12/21 07:30 Proposed Procedures p Left Carotid Endarterectomy(Left) - Hugo Brown MD Height/Weight Height: 6 ft Weight: 103.1 kg Allergies Allergy/AdvReac Type Severity Reaction Status Date / Time atorvastatin [From Lipitor] Allergy Mild Rash Verified 03/07/21 10:16 oxycodone AdvReac Mild Nausea, Verified 03/07/21 14:48 "didn't work" Medications Home Medications Medication Instructions Recorded Confirmed Last Taken metformin 500 mg tablet 500 mg PO BID 05/02/20 03/07/21 06/11/20 07:30 losartan 25 mg PO QAM 06/11/20 03/07/21 06/11/20 07:30 amoxicillin 2,000 mg PO UD PRN 03/07/21 03/07/21 Unknown aspirin [Aspirin Low Dose] 81 mg PO QAM 03/07/21 03/07/21 Unknown rosuvastatin 20 mg PO QAM 03/07/21 03/07/21 Unknown Past Medical History Medical History Aortic stenosis Moderate aortic stenosis (ELLE 1.1 cm, MG 33 mmHg) per 12/2020 echo Arthritis of right hip Carotid artery stenosis Focal high-grade stenosis of approximately 80% at the origin of the left internal carotid artery per 12/21/20 Neck CTA Diabetes mellitus, type 2 NIDDM Hyperlipidemia Hypertension Obesity Exercise / Class Metabolic Activity II 4-5 Yardwork/Stairs/Walk up hill Past Family History Family History Other No family history of adverse response to anesthesia Past Surgical History Surgical History History of left hip replacement History of right hip replacement Right SADIE (06/12/20): SAB at L3/L4 (x1 attempt) at [facility] Hx of left inguinal hernia repair Past Anesthesia History No Hx of Anesthesia Complications and No Family Hx of Anesthesia Complications History of PONV No Hx of PONV and No Hx of Motion Sickness Social History Smoking Status: Former smoker Do You Dip or Chew Tobacco: No Smoking End Date: Quit age 20 Hx Alcohol Use: Yes Alcohol type: beer alcohol intake frequency: holidays/special occasions only Hx Substance Use: No substance use type: does not use Review of Systems No snoring. Patient denies chest pain, shortness of breath, dyspnea on exertion, fever, chills, cough, wheezing, palpitations. Physical Exam Vital Signs VITALS BP 126/75 P 66 TEMP 98.1 SP02 98%RA RESP 16 PHYSICAL Full cervical extension range of motion. Full TMJ range of motion. TMD 2.5 finger breaths Mallampati Score 3 Dentition: intact, + 2 crowns (sides), + bridge (upper front) Lungs: clear throughout to auscultation Cardiac: regular rate and rhythm, I-II/ systolic murmur Spine: normal Carotid arteries: no bruit Extremities: no edema Thick neck Lab Results Anesthesia Preop Results Results Anesthesia Widget: WBC 7.99 K/uL (4.8-10.8) 03/08/21 Hgb 15.1 g/dL (14.0-18.0) 03/08/21 Hct 44.4 % (42-52) 03/08/21 Plt 242 K/uL (130-400) 03/08/21 Na 136 mmol/L (136-145) 03/08/21 K 4.1 mmol/L (3.5-5.1) 03/08/21 Cl 103 mmol/L (98-107) 03/08/21 CO2 26 mmol/L (21-32) 03/08/21 BUN 14 mg/dl (7-18) 03/08/21 Creat 1.23 mg/dl (0.6-1.4) 03/08/21 Glucose Level 191 mg/dl (70-99) H 03/08/21 PT 10.3 Seconds (9.0-12.0) 03/08/21 PTT 29.7 Seconds (21.0-31.0) 03/08/21 INR 1.0 (0.9-1.1) 03/08/21 HA1c 7.0 % (4.5-5.6) H 03/08/21 Blood Type O Positive 03/08/21 Antibody Screen NEGATIVE 03/08/21 Testing Electrocardiogram Date: 02/13/21 Normal sinus rhythm at 66 bpm. Voltage criteria for LVH. Chest X-Ray Date: 03/08/21 FINDINGS: No pneumothorax. No pleural effusions. A few small linear density at the left lung base remain unchanged in favor scarring or atelectasis. Otherwise, no new focal lung consolidations to suggest pneumonia. No evidence for pulmonary edema. Cardiac silhouette remains moderately enlarged. IMPRESSION: No significant change compared to the prior study. No acute process. Stable moderate cardiomegaly. Echocardiogram Date: 01/25/21 EF greater than 70%. Hyperdynamic LV systolic function with no regional wall motion abnormalities. Mild concentric LVH. Grade 1 diastolic dysfunction. Mild MR. Mild AI. Heavily calcified, tricuspid aortic valve. Moderate aortic stenosis (ELLE 1.1 cm, mean gradient 33 mmHg). Mild TR. Normal estimated pulmonary artery pressures. Other Testing Neck CTA (12/21/20): Focal high-grade stenosis of approximately 80% at the origin of the left internal carotid artery. 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
[~2021-03-12 06:02] MED LIST changes: -ACETAMINOPHEN 500 MG TAB PO SCH; +CEFAZOLIN 2,000 MG/15 ML SYR IV SCH; -CEFAZOLIN 2000MG 2,000 MG/15 ML SYR IV SCH; -FAMOTIDINE 20 MG TAB PO SCH; -GABAPENTIN 300 MG CAP PO SCH; -GENERAL ORDER PROBLEM SCH; +LACTATED RINGER'S 1,000 ML IV SCH; +LR 15ML/HR IV SCH; -LR 500ML BOLUS, THEN 15ML/HR IV SCH; -LR 60ML/HR IV SCH; -METOCLOPRAMIDE HCL 10 MG TABLET PO SCH; -TRANEXAMIC ACID 1,000 MG **IV Pre-op IV SCH; -dexAMETHasone 4 MG TAB PO SCH
[2021-03-12] MEDS ORDERED: ONDANSETRON INJ 2 MG/ML 2 ML VIAL ONE ×2 (06:49→10:28)
[2021-03-12] MEDS ORDERED: PROPOFOL IV EMULSION 10 MG/ML 20 ML VIAL IV ONE (06:49)
[2021-03-12] MEDS ORDERED: LIDOCAINE 2% 2 ML VIAL/AMP(20MG/ML) INFIL ONE (06:49)
[2021-03-12] MEDS ORDERED: MIDAZOLAM HCL 1 MG/ML 2ML VIAL ONE (06:50)
[2021-03-12] MEDS ORDERED: fentaNYL citrate 100 MCG/2 ML VIAL ONE ×2 (06:50→08:20)
[2021-03-12] MEDS ORDERED: LIDOCAINE 1% LOCAL 20 ML VIAL ONE (06:54)
[2021-03-12] MEDS ORDERED: THROMBIN FOR SOLN 20000 UNIT KIT ONE (06:54)
[2021-03-12] MEDS ORDERED: GELATIN SPONGE SZ 100 ONE (06:54)
[2021-03-12] MEDS ORDERED: HEPARIN (PORCINE) 1000 UNIT/ML 10 ML (CATH LAB USE ONLY) ONE (06:54)
[2021-03-12] MEDS ORDERED: BUPIVACAINE/EPINEPHRINE 0.5% MPF 1:200,000 30 ML VIAL ONE (06:54)
[2021-03-12] MEDS ORDERED: HEPARIN SOD (PORCINE) 1000 UNIT/ML ONE ×2 (06:57→09:57)
[2021-03-12] MEDS ORDERED: PROTAMINE SULFATE 10 MG/ML 5 ML VIAL ONE (06:57)
[2021-03-12] MEDS ORDERED: SUGAMMADEX SODIUM 200 MG/2 ML VIAL IV ONE (06:57)
[2021-03-12] MEDS ORDERED: PHENYLEPHRINE HCL 10 MG/ML VIAL ONE (06:59)
[2021-03-12] MEDS ORDERED: ONDANSETRON INJ 2 MG/ML 2 ML VIAL IV PRN (07:17)
[2021-03-12] MEDS ORDERED: ePHEDrine sulfate 50 MG/ML AMP IV PRN (07:17)
[2021-03-12] MEDS ORDERED: fentaNYL citrate 100 MCG/2 ML VIAL IV PRN (07:17)
[2021-03-12] MEDS ORDERED: ATROPINE SULFATE 0.1 MG/ML 10ML SYR IV PRN (07:17)
[2021-03-12] MEDS ORDERED: PROMETHAZINE HCL 12.5 MG in SODIUM CHLORIDE 0.9% 50 ML IV PRN (07:17)
[2021-03-12] MEDS ORDERED: FLUMAZENIL 0.1 MG/1 ML 10 ML VIAL IV PRN (07:17)
[2021-03-12] MEDS ORDERED: NALOXONE HCL 0.4 MG/1 ML VIAL/CARP IV PRN (07:17)
[2021-03-12] MEDS ORDERED: LABETALOL HCL IV 5 MG/ML 20ML IV PRN (07:17)
--- NOTE | 2021-03-12 07:35 | History & Physical Report ---
Date of Service March 12, 2021 Assessment & Plan (1) Carotid stenosis, left: Patient is admitted for a left CEA. I have discussed the risks options and benefits of the procedure with the patient. The patient understands the risks options and benefits and agrees to the procedure. History of Present Illness Chief Complaint: Left internal carotid artery stenosis Primary Care Provider: Raghavendra Conner MD is an elderly male who presents today for 6-month follow-up visit regarding left ICA stenosis. Patient has been followed for a few years regarding a 60 to 69% stenosis of the left ICA. At his visit here 6 months ago, he was noted to have increased velocities in his left ICA bulb and recommended to return in 6 months instead of 1 year. He returns today for that 6-month follow-up visit. He continues to deny any complaints of cerebrovascular insufficiency, including dizziness, unilateral extremity weakness numbness or tingling, amaurosis, facial droop, difficulty speaking or swallowing, confusion, headaches. His carotid ultrasound performed prior to today's visit demonstrates no hemodynamically significant stenosis of the right ICA, antegrade flow in his vertebral arteries and normal flow in his bilateral subclavian arteries. Additionally it demonstrates a left ICA bulb velocity of 323/101. This is a si gnificant increase and does indicate that the stenosis may actually be over 80%. CTA confirmed a 90% stenosis of the left internal carotid artery. Allergies Allergy/AdvReac Type Severity Reaction Status Date / Time atorvastatin [From Lipitor] Allergy Mild Rash Verified 03/12/21 06:35 oxycodone AdvReac Mild Nausea, Verified 03/12/21 06:35 "didn't work" Home Medications Medication Instructions Recorded Confirmed Type metformin 500 mg tablet 500 mg PO BID 05/02/20 03/12/21 History losartan 25 mg PO QAM 06/11/20 03/12/21 History amoxicillin 2,000 mg PO UD PRN 03/07/21 03/12/21 History aspirin [Aspirin Low Dose] 81 mg PO QAM 03/07/21 03/12/21 History rosuvastatin 20 mg PO QAM 03/07/21 03/12/21 History Past Med/Surg History Medical History Aortic stenosis Moderate aortic stenosis (ELLE 1.1 cm, MG 33 mmHg) per 12/2020 echo Arthritis of right hip Carotid artery stenosis Focal high-grade stenosis of approximately 80% at the origin of the left internal carotid artery per 12/21/20 Neck CTA Diabetes mellitus, type 2 NIDDM Hyperlipidemia Hypertension Obesity Surgical History History of left hip replacement History of right hip replacement Right SADIE (06/12/20): SAB at L3/L4 (x1 attempt) at [facility] Hx of left inguinal hernia repair Family History Other No family history of adverse response to anesthesia Social History Smoking Status: Former smoker Smoking End Date: Quit age 20; Second Hand Exposure: No; Do You Dip or Chew Tobacco: No; Tobacco Cessation Education Requested by Patient: No Hx Alcohol Use: Yes Alcohol type: beer Hx Substance Use: No Preferred Language: Cameroonian Communication Ability: Effective Store Facility Technician Required: No Beliefs That Will Affect Care: None marital status: Current Living Situation: Spouse Other Information That Helps Us Care for You: No Feels Safe at Home: Yes Safety Concerns: Feels Safe At This Time Assistive Devices: Glasses Review of Systems All systems reviewed & are unremarkable except as noted in HPI & below Physical Exam Physical Exam: Constitutional: In general patient is a healthy-appearing well- nourished well-developed elderly male no distress. Is alert and oriented without any focal deficits. His right neck does not demonstrate a carotid bruit, his left does demonstrate a carotid bruit. His heart is regular, his lungs are clear. His abdomen is soft nontender with normoactive bowel sounds in all 4 quadrants. His brachial radial and femoral pulses are +3. His lower extremities a pulses are +1. He has brisk capillary refill and no sign of distal ischemia. Results & Data ([facility]) Vital Signs (Past 12 Hours) Vital Signs Temp Pulse Resp BP BP Pulse Ox 03/12/21 06:39 36.6 C 75 20 144/79 H 138/78 97
[2021-03-12] MEDS ORDERED: ROCURONIUM BROMIDE 10 MG/ML 5 ML VIAL IV ONE (08:28)
--- NOTE | 2021-03-12 10:40 | Operative Report ---
Post Operative Report Pre & Post Diagnosis Operation Date: 03/12/21 08:00 Pre-Op Diagnosis: Left Internal Carotid Artery Stenosis Post-Op Diagnosis: Left Internal Carotid Artery Stenosis I identified the patient and participated in the time-out.: Yes Procedure Operation Date: 03/12/21 08:00 Actual Procedures p Left Carotid Endarterectomy with Bovine Patch Graft(Left) - Hugo Brown MD Surgeon Hugo Brown MD Metal Burnisher Sung Harvey MD Estimated Blood Loss 150 Findings Consistent with Post-Op Diagnosis Specimens None Anesthesia Type General Complications none Disposition Accompanied Patient To Recovery: No Disposition: Surgical ICU Indications This is a 70 yo M with left sided carotid disease who was recommended a left carotid endarterectomy. I have discussed the risks options and benefits of the procedure with the patient. The patient understands the risks options and benefits and agrees to the procedure. Description of Procedure The patient was taken to the operating room and placed in supine position. After general anesthesia was accomplished the left-side of the neck was prepped and draped in a sterile manner. The patient was identified and a timeout was performed. A longitudinal neck incision was then made coursing along the medial border of the sternocleidomastoid muscle. The incision was taken down through the platysmal layer. The facial vein was identified, ligated, and divided. The common carotid artery was then seen. It was dissected free down to the omohyoid muscle. The dissection was carried upward until the external carotid artery and superior thyroid artery was seen. The superior thyroid artery was slung with a 2-0 silk suture. The external carotid was slung with a red rubber vessel loop. Next the dissection was carried up along the internal carotid artery. This was carried upward to beyond the area of narrowing. The hypoglossal nerve was seen and preserved. The patient was heparinized. After adequate heparinization was accomplished, the internal, external, and common carotid arteries were clamped. A longitudinal arteriotomy was started on the common carotid artery and extended upward along the internal carotid artery to a point beyond the area of narrowing. There was calcified plaque of the internal carotid artery origin causing approximately 85-90% narrowing. A Sundt shunt was then placed in the internal, followed by the common carotid artery and held in place with Heron clamps. There was good back bleeding seen from the internal carotid artery. The endarterectomy was then started in the appropriate plane on the common carotid artery. This was carried upward and the external carotid was everted and endarterectomized. The endarterectomy was then carried up along the internal carotid artery till a nice feathering breakoff point was accomplished beyond the end of the plaque. The endarterectomy was then carried down further on the common carotid artery. At end of the arteriotomy, the plaque was then transected. Under loop magnification, all loose debris and flaps were removed. There is no distal flap seen at the end of the endarterectomy site. The ar teriotomy then closed using a Bovine patch and a running CV 6 Start-Costa suture. This was done in the usual vascular fashion. Prior to completing the closure, the Sundt shunt was removed and the internal and common carotid arteries were reclamped. Backbleeding and forward bleeding was allowed to occur. The flow surface was irrigated with heparinized saline. The final few sutures were then placed and securely tied. Clamps were then removed off the external and common carotid arteries. The clamp was then removed the internal carotid artery. Good distal flow was seen. Adequate hemostasis was seen of the patch. The wound was inspected and adequate hemostasis was obtained. The wound was irrigated with antibiotic solution. It was then closed with a running 3-0 Vicryl suture for the platysmal layer and a 4-0 subcuticular Vicryl suture for the skin edges. Dermabond was used for dressing. The patient left the operation room in satisfactory condition and tolerated the procedure well. All needle and sponge counts were correct at the end of the procedure. Dr. Brown was present and scrubbed for the entire procedure. I attest to the content of the Intraoperative Record and any orders documented therein. Any exceptions are noted below.
--- NOTE | 2021-03-12 10:40 | Post Operative Brief Note ---
Immediate Post Op Note v1 Date of Surgery March 12, 2021 Pre & Post Diagnosis Operation Date: 03/12/21 08:00 Pre-Op Diagnosis: Left Internal Carotid Artery Stenosis Post-Op Diagnosis: Left Internal Carotid Artery Stenosis I identified the patient and participated in the time-out.: Yes Procedure Operation Date: 03/12/21 08:00 Actual Procedures p Left Carotid Endarterectomy with Bovine Patch Graft(Left) - Hugo Brown MD Surgeon Hugo Brown MD Field Collector MD Karen Rutledge.Minarchick,PAC Estimated Blood Loss 150 Findings Consistent with Post-Op Diagnosis Anesthesia Type General Complications none Disposition Accompanied Patient To Recovery: No Disposition: Recovery Room
--- NOTE | 2021-03-12 11:59 | Anesthesiology Progress Note ---
Date of Service March 12, 2021 Anesthesia Post Procedure Vital Signs Vital Signs: Temp Pulse Pulse Resp BP BP Pulse Ox 03/12/21 11:45 36.4 C L 67 21 104/59 L 96 03/12/21 11:35 36.4 C L 66 23 107/53 L 95 03/12/21 11:25 70 25 H 88/57 L 95 03/12/21 11:15 65 14 92/63 L 95 03/12/21 11:07 36.1 C L 87 20 120/66 98 03/12/21 06:39 36.6 C 75 20 144/79 H 138/78 97 Transfer of Care Handoff Completed per policy Notes Mental Status: alert / awake / arousable Patient Amnestic to Procedure: Yes Nausea / Vomiting: adequately controlled Pain: adequately controlled Airway Patency, RR, SpO2: stable & adequate BP & HR: stable & adequate Hydration State: stable & adequate Anesthetic Complications: no major complications apparent Notes: neurologically intact,non-focal
[2021-03-12] MEDS ORDERED: LACTATED RINGER'S 1,000 ML IV SCH (12:23)
[2021-03-12] MEDS ORDERED: oxyCODONE/ACETAMINOPHEN 5mg/325mg TAB PO PRN (12:23)
[2021-03-12] MEDS ORDERED: MoRPHine SULFATE 4 MG/ML 1 ML CARP\\VIAL IV PRN (12:23)
[2021-03-12] MEDS ORDERED: MoRPHine SULFATE 2 MG/ML CARP IV PRN (12:35)
[2021-03-12] MEDS ORDERED: ACETAMINOPHEN 325 MG TAB PO PRN ×2 (13:05→16:46)
[2021-03-12] MEDS ORDERED: ACETAMINOPHEN 325 MG TAB PO ONE (13:19)
--- NOTE | 2021-03-12 13:22 | Critical Care Consultation ---
Date of Consultation March 12, 2021 Assessment & Plan (1) Carotid stenosis, left: 70-year-old male with a history of diabetes, peripheral vascular disease, hypertension, obesity, hyperlipidemia and left carotid artery stenosis who presents to the ICU for postop monitoring status post left carotid endarterectomy. Vital signs are stable at this time. He is complaining of a headache. Acetaminophen ordered. No focal neurological deficits noted. Oxycodone available as well per vascular surgery. Blood pressure parameters and pain control vascular surgeon. Disposition per vascular surgery. The ICU team will continue to monitor the patient while he is in the ICU. Thank you for the consultation. (2) Encounter for postoperative carotid endarterectomy surveillance: (3) Headache: History of Present Illness Reason for Consultation: Post carotid endarterectomy ICU monitoring Attending Physician: Hugo Brown MD History of Present Illness 70-year-old male with a past medical history of obesity, peripheral vascular disease, diabetes mellitus, carotid artery stenosis of the left and moderate aortic stenosis who presented today for elective left carotid endarterectomy. He describes that his carotid artery stenosis was followed for many years and it was decided to proceed with elective surgery. He is doing well at the moment aside from having a mild frontal to occipital headache that is 5 out of 10 in intensity. He denies any vision changes. He is requesting medication for his headache. He denies any weakness, nausea or vomiting. Denies chest pain. Vital signs are stable. Radial arterial line is in place. Neck CTA from 12/21/2020 reviewed with focal high-grade stenosis of approximately 80% at the origin of the left internal carotid artery. Mild stenosis within the bilateral carotid bulbs 130%. 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 He smoked cigarettes and quit in the 1970s. Allergies Allergy/AdvReac Type Severity Reaction Status Date / Time atorvastatin [From Lipitor] Allergy Mild Rash Verified 03/12/21 06:35 oxycodone AdvReac Mild Nausea, Verified 03/12/21 06:35 "didn't work" Home Medications Medication Instructions Recorded Confirmed Type metformin 500 mg tablet 500 mg PO BID 05/02/20 03/12/21 History losartan 25 mg PO QAM 06/11/20 03/12/21 History amoxicillin 2,000 mg PO UD PRN 03/07/21 03/12/21 History aspirin [Aspirin Low Dose] 81 mg PO QAM 03/07/21 03/12/21 History rosuvastatin 20 mg PO QAM 03/07/21 03/12/21 History Patient History Medical History Aortic stenosis Moderate aortic stenosis (ELLE 1.1 cm, MG 33 mmHg) per 12/2020 echo Arthritis of right hip Carotid artery stenosis Focal high-grade stenosis of approximately 80% at the origin of the left internal carotid artery per 12/21/20 Neck CTA Diabetes mellitus, type 2 NIDDM Hyperlipidemia Hypertension Obesity Surgical History History of left hip replacement History of right hip replacement Right SADIE (06/12/20): SAB at L3/L4 (x1 attempt) at [facility] Hx of left inguinal hernia repair Family History Other No family history of adverse response to anesthesia Social History Smoking Status: Former smoker Smoking End Date: Quit age 20; Second Hand Exposure: No; Do You Dip or Chew Tobacco: No; Tobacco Cessation Education Requested by Patient: No Hx Alcohol Use: Yes Alcohol type: beer Hx Substance Use: No Preferred Language: Mongolian Communication Ability: Effective Sql Analyst Required: No Beliefs That Will Affect Care: None marital status: Current Living Situation: Spouse Other Information That Helps Us Care for You: No Feels Safe at Home: Yes Safety Concerns: Feels Safe At This Time Assistive Devices: Glasses Review of Systems Review of Systems: All systems reviewed & are unremarkable except as noted in HPI & below Physical Exam Constitutional: WD/WN, vitals as above Neck: Left neck incision noted. Ice pack in place. Respiratory: normal respiratory effort, lungs clear to auscultation Cardiovascular: RRR, no murmur, no edema Gastrointestinal (Abdomen): normal bowel sounds, soft, nontender, no hepatosplenomegaly Musculoskeletal: no cyanosis or clubbing, extremities motor strength 5/5 Neurologic: patellar DTR's 2+ bilat, sensation intact Psychiatric: A+Ox3, euthymic affect Results & Data Results & Data ([facility]) Vital Signs (Past 12 Hours) Vital Signs Temp Pulse Pulse Resp BP BP Pulse Ox 03/12/21 12:23 97.9 F 03/12/21 11:55 97.5 F L 63 21 101/60 96 03/12/21 11:45 97.5 F L 67 21 104/59 L 96 03/12/21 11:35 97.5 F L 66 23 107/53 L 95 03/12/21 11:25 70 25 H 88/57 L 95 03/12/21 11:15 65 14 92/63 L 95 03/12/21 11:07 97.0 F L 87 20 120/66 98 03/12/21 06:39 97.9 F 75 20 144/79 H 138/78 97 vital signs, labs and imaging reviewed Coding Level of Care Code 29833 Inpt Consult Level 3 Diagnoses Carotid stenosis, left I65.22 Encounter for postoperative carotid endarterectomy surveillance Z48.812 Headache R51.9
[2021-03-12] MEDS: ceFAZolin 2000MG 2,000 MG/15 ML SYR IV SCH (16:35)
[2021-03-12] MEDS: metFORMIN HCL 500 MG TAB PO SCH (16:36)
[2021-03-13] MEDS: ceFAZolin 2000MG 2,000 MG/15 ML SYR IV SCH (00:13)
[2021-03-13 05:00] LABS: Eosinophils # (auto) 0.08 K/uL (0-0.5); Eosinophils % (auto) 0.7 %; Hematocrit (blood only) 36.4 % (42-52); Hemoglobin 12.7 g/dL (14.0-18.0); Immature Granulocytes # (auto) 0.03 K/uL (0.00-0.02); Immature Granulocytes % (auto) 0.3 %; Lymphocytes # (auto) 1.94 K/uL (1.2-3.4); Lymphocytes % (auto) 17.1 %; Mean Corpuscular Hemoglobin 31.6 pg (25-34); Mean Corpuscular Hgb Conc 34.9 g/dL (32-36); Mean Corpuscular Volume 90.5 fL (80-100); Mean Platelet Volume 8.3 fL (7.4-10.4); Monocytes # (auto) 0.98 K/uL (0.11-0.59); Monocytes % (auto) 8.6 %; Neutrophils % (auto) 73.3 %; Platelet Count 192 K/uL (130-400); RDW Coefficient of Variation 12.5 % (11.5-14.5); RDW Standard Deviation 41.1 fL (36.4-46.3); Red Blood Count 4.02 M/uL (4.7-6.1); White Blood Count 11.33 K/uL (4.8-10.8)
[2021-03-13] MEDS: metFORMIN HCL 500 MG TAB PO SCH (08:48)
[2021-03-13] MEDS ORDERED: LOSARTAN POTASSIUM 25 MG TAB PO SCH (09:00)
[2021-03-13] MEDS ORDERED: ROSUVASTATIN CALCIUM 20 MG TAB PO SCH (09:00)
[2021-03-13] MEDS ORDERED: ASPIRIN 81 MG ECTAB PO SCH (09:00)
--- NOTE | 2021-03-13 10:47 | Critical Care Progress Note ---
Date of Service March 13, 2021 Assessment & Plan (1) Carotid stenosis, left: 70-year-old male with a history of diabetes, peripheral vascular disease, hypertension, obesity, hyperlipidemia and left carotid artery stenosis who presents to the ICU for postop monitoring status post left carotid endarterectomy. Vital signs are stable at this time. His headache is resolved. Blood pressure parameters and pain control per vascular surgeon. Disposition per vascular surgery. The ICU team will continue to monitor the patient while he is in the ICU. Thank you for the consultation. (2) Encounter for postoperative carotid endarterectomy surveillance: (3) Headache: Admission and Anticipated Discharge Date Admission Date: March 12, 2021 Subjective Patient seen this morning. Tolerated diet well. No significant complaints. Sitting up in a chair. Vital signs stable. Denies chest pain, nausea or vomiting. Mild neck soreness. Physical Exam Constitutional: WD/WN, vitals as above Respiratory: normal respiratory effort, lungs clear to auscultation Cardiovascular: RRR, no murmur, no edema Gastrointestinal (Abdomen): normal bowel sounds, soft, nontender, no hepatosplenomegaly Musculoskeletal: no cyanosis or clubbing, extremities motor strength 5/5 Neurologic: patellar DTR's 2+ bilat, sensation intact Psychiatric: A+Ox3, euthymic affect Results & Data Results & Data ([facility]) Vital Signs (Past 12 Hours) Vital Signs Temp Pulse Pulse Pulse Resp BP BP 03/13/21 08:00 83 03/13/21 07:15 99.1 F 79 20 L 20 136/55 L 03/13/21 04:30 97.9 F 03/13/21 04:00 83 33 H 130/73 03/13/21 03:45 79 26 H 03/13/21 03:30 73 27 H 03/13/21 03:15 65 24 03/13/21 03:00 68 25 H 115/62 03/13/21 02:45 85 27 H 03/13/21 02:30 80 32 H 03/13/21 02:15 84 36 H 03/13/21 02:00 81 30 H 117/56 L 03/13/21 01:45 67 26 H 03/13/21 01:30 72 27 H 03/13/21 01:15 80 32 H 03/13/21 01:00 82 27 H 115/62 03/13/21 00:45 75 28 H 03/13/21 00:30 77 30 H 03/13/21 00:28 98.4 F 03/13/21 00:15 74 31 H 03/13/21 00:00 73 29 H 102/58 L 03/12/21 23:45 74 27 H 03/12/21 23:30 74 27 H 03/12/21 23:15 78 32 H 03/12/21 23:00 76 118/68 BP Pulse Ox 03/13/21 08:00 03/13/21 07:15 130/65 95 03/13/21 04:30 03/13/21 04:00 93 03/13/21 03:45 94 03/13/21 03:30 94 03/13/21 03:15 94 03/13/21 03:00 94 03/13/21 02:45 93 03/13/21 02:30 94 03/13/21 02:15 93 03/13/21 02:00 94 03/13/21 01:45 95 03/13/21 01:30 94 03/13/21 01:15 92 03/13/21 01:00 03/13/21 00:45 03/13/21 00:30 03/13/21 00:28 03/13/21 00:15 03/13/21 00:00 03/12/21 23:45 03/12/21 23:30 03/12/21 23:15 94 03/12/21 23:00 94 vital signs, labs and imaging stable. Coding Level of Care Code 32998 Subseq Hosp Care Lvl 1 Diagnoses Carotid stenosis, left I65.22 Encounter for postoperative carotid endarterectomy surveillance Z48.812 Headache R51.9
--- NOTE | 2021-03-13 11:10 | Surgery Progress Note ---
Date of Service March 13, 2021 Assessment & Plan (1) S/P carotid endarterectomy: This patient underwent an uneventful left carotid endarterectomy. He is doing well will be discharged to self-care at home today. Admission and Anticipated Discharge Date Admission Date: March 12, 2021 Subjective This 70-year-old male 1 day after carotid surgery. He has no complaints he is swallowing without difficulty. He has no complaints of neurological deficits. His voice is unchanged from preop. Physical Exam Constitutional: WD/WN, vitals as above On exam he is neurologically intact. His tongue is midline. The incision is dry and clean with no significant edema present. Results & Data ([facility]) Vital Signs (Past 12 Hours) Vital Signs Temp Pulse Pulse Pulse Resp BP BP 03/13/21 08:00 83 03/13/21 07:15 37.3 C 79 20 L 20 136/55 L 03/13/21 04:30 36.6 C 03/13/21 04:00 83 33 H 130/73 03/13/21 03:45 79 26 H 03/13/21 03:30 73 27 H 03/13/21 03:15 65 24 03/13/21 03:00 68 25 H 115/62 03/13/21 02:45 85 27 H 03/13/21 02:30 80 32 H 03/13/21 02:15 84 36 H 03/13/21 02:00 81 30 H 117/56 L 03/13/21 01:45 67 26 H 03/13/21 01:30 72 27 H 03/13/21 01:15 80 32 H 03/13/21 01:00 82 27 H 115/62 03/13/21 00:45 75 28 H 03/13/21 00:30 77 30 H 03/13/21 00:28 36.9 C 03/13/21 00:15 74 31 H 03/13/21 00:00 73 29 H 102/58 L 03/12/21 23:45 74 27 H 03/12/21 23:30 74 27 H 03/12/21 23:15 78 32 H BP Pulse Ox 03/13/21 08:00 03/13/21 07:15 130/65 95 03/13/21 04:30 03/13/21 04:00 93 03/13/21 03:45 94 03/13/21 03:30 94 03/13/21 03:15 94 03/13/21 03:00 94 03/13/21 02:45 93 03/13/21 02:30 94 03/13/21 02:15 93 03/13/21 02:00 94 03/13/21 01:45 95 03/13/21 01:30 94 03/13/21 01:15 92 03/13/21 01:00 03/13/21 00:45 03/13/21 00:30 03/13/21 00:28 03/13/21 00:15 03/13/21 00:00 03/12/21 23:45 03/12/21 23:30 03/12/21 23:15 94
--- NOTE | 2021-03-15 10:18 | Discharge Summary ---
Date of Service March 15, 2021 Admission HPI Per Admitting Provider is an elderly male who presents today for 6-month follow-up visit regarding left ICA stenosis. Patient has been followed for a few years regarding a 60 to 69% stenosis of the left ICA. At his visit here 6 months ago, he was noted to have increased velocities in his left ICA bulb and recommended to return in 6 months instead of 1 year. He returns today for that 6-month follow-up visit. He continues to deny any complaints of cerebrovascular insufficiency, including dizziness, unilateral extremity weakness numbness or tingling, amaurosis, facial droop, difficulty speaking or swallowing, confusion, headaches. His carotid ultrasound performed prior to today's visit demonstrates no hemodynamically significant stenosis of the right ICA, antegrade flow in his vertebral arteries and normal flow in his bilateral subclavian arteries. Additionally it demonstrates a left ICA bulb velocity of 323/101. This is a significant increase and does indicate that the stenosis may actually be over 80%. CTA confirmed a 90% stenosis of the left internal carotid artery. Admission Exam Per Admitting Provider Constitutional: In general patient is a healthy-appearing well-nourished well- developed elderly male no distress. Is alert and oriented without any focal deficits. His right neck does not demonstrate a carotid bruit, his left does demonstrate a carotid bruit. His heart is regular, his lungs are clear. His abdomen is soft nontender with normoactive bowel sounds in all 4 quadrants. His brachial radial and femoral pulses are +3. His lower extremities a pulses are +1. He has brisk capillary refill and no sign of distal ischemia. Principal Diagnosis 1. s/p L CEA 2. asymptomatic L ICA stenosis Discharge Exam Constitutional WD/WN, vitals as above Neck Mild edema L neck Respiratory normal respiratory effort, lungs clear to auscultation Cardiovascular Rate/Rhythm: regular rate and regular rhythm Vessels: normal peripheral pulses Gastrointestinal (Abdomen) normal bowel sounds, soft, nontender, no hepatosplenomegaly Musculoskeletal no cyanosis or clubbing, extremities motor strength 5/5 Neurologic moves all extremities and awake; no focal motor deficits and not confused Psychiatric A+Ox3, euthymic affect Discharge Data Allergies Allergy/AdvReac Type Severity Reaction Status Date / Time atorvastatin [From Lipitor] Allergy Mild Rash Verified 03/12/21 06:35 oxycodone AdvReac Mild Nausea, Verified 03/12/21 06:35 "didn't work" Consultations 03/12/21 07:35 Consult Windlace Machine Operator Routine Procedures Performed Operation Date: 03/12/21 08:00 Actual Procedures p Left Carotid Endarterectomy with Bovine Patch Graft(Left) - Hugo Brown MD Hospital Course (1) S/P carotid endarterectomy: This patient underwent an uneventful left carotid endarterectomy. He is doing well will be discharged to self-care at home today, POD #1. Total Time Total Time Spent Total Time Spent (In Minutes): 0 Discharge Plan Discharge Items Patient Disposition: Home - Self-Care Reason For Visit: Left Internal Carotid Artery Stenosis Discharge Diagnosis: Left carotid stenosis, post carotid endarterectomy Non-emergency contact: Surgeon Call non-emergency contact if: your temperature is above 101.5, your wound has increased redness, your wound has increased drainage and your wound pain has increased Follow-up/Referrals: Raghavendra Conner MD [Primary Care Provider] - 03/26/21 12:30 pm (Please follow up with Dr. Conner on Thursday03/26/21 at 12:30 pm. Please arrive to the office at 12:15 pm for your appointment. If you are unable to keep this appointment, please call the office to reschdule at [phone].) Diet: Carb Consistent or DM2 and Heart Healthy Addtl Attending Provider Instructions: SPECIAL CARE INSTRUCTIONS: Medications: * Continue to take Aspirin as directed. Incision Care: * You may shower, but do not rub incision. You may let the warm soapy water run over it. Be sure to dry the incision well after bathing. * Do not shave directly over the incision until it is healed. * DO NOT IMMERSE THE INCISION IN A TUB/POOL/etc. UNTIL HEALED. Restrictions: * Do not drive for at least one week or if you are still taking any narcotic pain medication. * Do not lift anything heavier than a gallon of milk for one week after going home. Possible Complications: * Numbness - It is normal to have some numbness around the incision. Numbness can extend beyond the incision to areas of the neck, ear and face. The numbness is due to bruising of nerves during the surgery and will gradually improve over a period of months. * Hoarseness/Difficulty Speaking and Swallowing - The bruising of nerves in the neck can also cause a hoarse voice, difficulty speaking or swallowing. This may improve over time, HOWEVER, if it continues for more than a few days please contact our office ([phone]). * Excessive Swelling - There will be some swelling immediately after surgery which usually resolves within one week. If you notice that the swelling is getting worse, notify your surgeon ([phone]). * Drainage/Bleeding - If there is any drainage or bleeding, it should be a very small amount (less than a teaspoon per day). If you have excessive bleeding or drainage from the incision, call your surgeon ([phone]) right away. ACTIVATION OF EMERGENCY MEDICAL SYSTEM: Call 911, immediately, if you experience any of the following: Warning Signs and Symptoms of Stroke: * Sudden numbness or weakness of the face, arm or leg, especially on one side of the body * Sudden confusion, trouble speaking or understanding * Sudden trouble seeing in one or both eyes * Sudden trouble walking, dizziness, loss of balance or coordination * Sudden severe headache with no cause Do not delay calling 911 if you experience any warning signs or symptoms of a stroke. Delay in seeking medical attention may affect what treatments can be given to you. Risk Factors for Stroke: You can reduce your chances of stroke by working with your medical provider to adopt a healthy lifestyle. Some specific ways to lower your chance of stroke are: * If you are a smoker, now is the time to stop smoking cigarettes * If you are diabetic, improve the control of your blood sugars * Avoid excessive amounts of alcohol * Control high blood pressure * Lose weight if you are overweight * Be sure to lead an active lifestyle * Eat a healthy diet low in salt, cholesterol and fat You should know about other risk factors for stroke that you are unable to control. These include: * Age 55 years or older * Male gender * Certain racial groups: , or / * Family History of Stroke, Mini stroke or Heart Attack * Sickle Cell Disease You will be receiving a call from the Vascular Surgery Nurse after you are discharged. FOLLOW UP VISIT: It is important for you to keep your follow up appointments with your medical provider. Keep any scheduled doctor appointments. Call [phone] to schedule a follow up appointment if one not already scheduled. Pending Studies at Discharge: No Stand-Alone Forms: [facility], Smoking Cessation Medications and DC Order Prescriptions: New oxycodone-acetaminophen [Percocet] 5-325 mg tablet 1 tab PO Q6H PRN (Reason: pain) Qty: 10 RF: 0 Continued metformin 500 mg tablet 500 mg PO BID RF: 0 losartan 25 mg Tablet 25 mg PO QAM RF: 0 aspirin [Aspirin Low Dose] 81 mg Tablet,Delayed Release (Dr/Ec) 81 mg PO QAM RF: 0 rosuvastatin 20 mg Tablet 20 mg PO QAM RF: 0 amoxicillin 500 mg tablet 2,000 mg PO UD PRN (Reason: prior to dental procedures) RF: 0 Discharge Orders: Discharge Order (Routine); Ordered 03/13/21 Ordered By: Hugo Smalls/Other Patient Handouts: Having Carotid Endarterectomy, After Carotid Artery Surgery: At Home, Carotid EndarterectomyDc, Carotid Artery Disease Admission Data Admit Date/Time: 03/12/21 07:35 Attending Provider: Hugo Brown Admit Provider: Hugo Brown Primary Care Provider: Raghavendra Conner Other Providers: Dominik Bill ; Yusuf Reeves ; Eric Pierre ; Austen Torres ; Alcon Torre ; Pradeep Robert ; Stanton Jernigan Other Interventions: Discharge Summary Assessment (RN) Last Done: 03/13/21 11:33
== END 2021-03-13 12:55 | disposition home or self-care (01) | DRG 39 ==
LOC: ASU 06:02 → 1E 07:35